=== PATIENT | female | born 1985 | race Caucasian/White ===

== ENCOUNTER 2018-08-11 19:38 | Emergency (ER) | payer OTHER ==
[2018-08-11] MEDS ORDERED: Acetaminophen 500 MG TAB ONE (19:55)
[2018-08-11] MEDS ORDERED: Acetaminophen/Codeine 30-300mg Tablet ONE ×2 (20:00→20:24)
--- NOTE | 2018-08-11 20:12 | RAD ---
3 views fourth digit right hand. HISTORY: Trauma. AP, lateral and oblique views fourth digit right hand obtained. There is an oblique moderately displaced fracture involving the midshaft middle phalanx fourth digit right hand. IMPRESSION: Right middle phalangeal fracture fourth digit.
== END 2018-08-11 20:30 | disposition home or self-care (01) ==
LOC: MADERS 19:38
DX: S62.624A Displaced fracture of middle phalanx of right ring finger, initial encounter for closed fracture (principal); V00.228A Other sled accident, initial encounter

== ENCOUNTER 2019-01-27 23:28 | Emergency (ER) | payer OTHER ==
[2019-01-27] MEDS ORDERED: methylPREDNISolone Sod Succ/PF 125 MG/2 ML VIAL ONE (23:39)
[2019-01-27] MEDS ORDERED: diphenhydrAMINE 50 MG/ML VIAL ONE (23:39)
== END 2019-01-28 00:43 | disposition home or self-care (01) ==
LOC: EEVIPCON 23:28 → MADERS 23:28
DX: T78.40XA Allergy, unspecified, initial encounter (principal); J45.909 Unspecified asthma, uncomplicated; F17.290 Nicotine dependence, other tobacco product, uncomplicated; Z79.899 Other long term (current) drug therapy
CPT/HCPCS: 96374; 96375; J1200; J2930

== ENCOUNTER 2019-05-13 17:51 | Outpatient (CLI) | payer OTHER ==
[2019-05-14 04:34] LABS: HBSAB Concentration 208.72 mIU/mL; Hep B Surf AB Reactive (NonReactive)
== END 2019-05-13 17:52 | disposition home or self-care (01) ==
LOC: MADLAB 17:51
PROVIDERS: ATTEND Internal Medicine Hematology & Oncology
DX: Z00.00 Encounter for general adult medical examination without abnormal findings (principal)
CPT/HCPCS: 86706

== ENCOUNTER 2020-03-17 08:15 | Outpatient (CLI) | payer OTHER ==
[2020-03-17 09:16] LABS: ALT (SGPT) 11 U/L (8-55); AST (SGOT) 12 U/L (5-34); Albumin 3.8 g/dL (3.5-5.0); Alkaline Phosphatase 62 U/L (40-110); Anion Gap 14 mmol/L (10-20); BUN (Urea Nitrogen) 11 mg/dL (7.0-18.7); Bilirubin, Total 0.5 mg/dL (0.2-1.2); Calc. Creatinine Clearance 0 mL/min (70-130); Calcium 8.5 mg/dL (7.8-10.44); Carbon Dioxide 20 mmol/L (22-29); Cardiac Risk 2.3 (Less than 4.5); Cholesterol 157 mg/dl (< 200 Desired); Globulin 2.9 g/dL (2.4-3.5); Glucose 93 mg/dL (70-105); HDL Cholesterol 69 mg/dL (>60 Neg Risk); LDL Cholesterol, Calculated 75 mg/dL; Potassium 3.9 mmol/L (3.5-5.1); Protein, Total 6.7 g/dL (6.0-8.3); Triglycerides 64 mg/dL (Less than 150)
[2020-03-17 09:19] LABS: #Basophils 0.1 thou/uL (0.0-0.2); #Eosinphils 0.2 thou/uL (0.0-0.7); #Lymphocytes 2.2 thou/uL (1.20-3.40); #Monocytes 0.5 thou/uL (0.11-0.59); #Neutrophils 2.7 thou/uL (1.40-6.50); %Basophils 1.6 % (0.0-1.0); %Eosinophils 4.1 % (0.0-10.0); %Lymphocytes 37.8 % (21.0-51.0); %Monocytes 9.4 % (0.0-10.0); %Neutrophils 47.1 % (42.0-75.0); Hemoglobin 11.3 g/dL (12.0-16.0); Mean Corpuscular HGB CONC 30.9 g/dL (32.0-36.0); Mean Corpuscular Hemoglobin 24.5 pg (27.0-31.0); Mean Corpuscular Volume 79.1 fL (78.0-98.0); Mean Platelet Volume 6.7 fL (7.4-10.4); Platelet Count 281 thou/uL (130-400); RBC Distribution Width 14.4 % (11.5-14.5); Red Blood Cell (RBC) Count 4.55 mill/uL (4.20-5.40); White Blood Cell (WBC) Count 5.6 thou/uL (4.8-10.8)
[2020-03-17 09:36] LABS: Thyroid Stimulating Hormone 0.7623 uIU/mL (0.35-4.94)
[2020-03-17 09:42] LABS: Anisocytosis SLIGHT = 6-15 cells (100X) (0-5/hpf)
[2020-03-17 09:43] LABS: Platelet Morphology Comment Appears Adequate
[2020-03-17 09:59] LABS: Chloride 109 mmol/L (98-107); Sodium 139 mmol/L (136-145)
[2020-03-17 17:00] LABS: HIV (1/2) Antibody/Antigen Non-Reactive (NonReactive); HIV 1/2 INDEX 0.07 S/CO (<1.00); Hep C IgG Ab Non-Reactive (NonReactive); Hep C Index 0.07 S/CO (0-0.79); Vitamin D, 25 Hydroxy 28.8 ng/ml (> 30.0)
[2020-03-17 17:14] LABS: Syphilis Antibody Nonreactive (Nonreactive); Syphilis Antibody Index 0.04 S/CO (<1.00 Non-Reactive)
== END 2020-03-17 08:16 | disposition home or self-care (01) ==
LOC: MADLAB 08:15
PROVIDERS: ATTEND Physician Assistant
DX: Z00.00 Encounter for general adult medical examination without abnormal findings (principal); Z11.3 Encounter for screening for infections with a predominantly sexual mode of transmission
CPT/HCPCS: 36415; 80053; 80061; 82306; 84443; 85025; 86780; 86803; 87389

== ENCOUNTER 2020-04-09 19:06 | Emergency (ER) | payer OTHER ==
--- NOTE | 2020-04-09 19:42 | RAD ---
Chest one view HISTORY: Dyspnea. Tachycardia. COMPARISON: 03/26/2014. FINDINGS: Cardiac silhouette and pulmonary vasculature are unremarkable. Mediastinum is midline. No confluent airspace consolidation or evidence of pneumothorax. IMPRESSION : No abnormalities are demonstrated.
[2020-04-09 20:18] LABS: Hemoglobin 11.1 g/dL (12.0-16.0); Mean Corpuscular HGB CONC 31.3 g/dL (32.0-36.0); Mean Corpuscular Hemoglobin 24.5 pg (27.0-31.0); Mean Corpuscular Volume 78.2 fL (78.0-98.0); Mean Platelet Volume 6.4 fL (7.4-10.4); Platelet Count 319 thou/uL (130-400); RBC Distribution Width 13.8 % (11.5-14.5); Red Blood Cell (RBC) Count 4.52 mill/uL (4.20-5.40); White Blood Cell (WBC) Count 8.3 thou/uL (4.8-10.8)
[2020-04-09 20:27] LABS: #Basophils 0.1 thou/uL (0.0-0.2); #Eosinphils 0.2 thou/uL (0.0-0.7); #Monocytes 0.6 thou/uL (0.11-0.59); #Neutrophils 5.8 thou/uL (1.40-6.50); %Basophils 1.3 % (0.0-1.0); %Eosinophils 2.2 % (0.0-10.0); %Lymphocytes 19.4 % (21.0-51.0); %Monocytes 7.6 % (0.0-10.0); %Neutrophils 69.5 % (42.0-75.0); Platelet Morphology Comment Appears Adequate; RBC Morphology Normal
[2020-04-09 20:36] LABS: ALT (SGPT) 13 U/L (8-55); AST (SGOT) 13 U/L (5-34); Albumin 3.8 g/dL (3.5-5.0); Alkaline Phosphatase 67 U/L (40-110); Anion Gap 13 mmol/L (10-20); BUN (Urea Nitrogen) 11 mg/dL (7.0-18.7); Bilirubin, Total 0.3 mg/dL (0.2-1.2); Calc. Creatinine Clearance 0 mL/min (70-130); Calcium 8.5 mg/dL (7.8-10.44); Carbon Dioxide 24 mmol/L (22-29); Chloride 109 mmol/L (98-107); Globulin 2.7 g/dL (2.4-3.5); Glucose 107 mg/dL (70-105); Potassium 3.9 mmol/L (3.5-5.1); Protein, Total 6.5 g/dL (6.0-8.3); Sodium 142 mmol/L (136-145)
[2020-04-09 20:45] LABS: Manual Diff?? NO
[2020-04-09 21:00] LABS: Thyroid Stimulating Hormone 0.2784 uIU/mL (0.35-4.94)
[2020-04-09 21:24] LABS: BHCG - Serum Negative (NEGATIVE); Pregs Control Background? CLEAR/WHITE (CLR/WHITE); Pregs Control Bar Appear? YES (CONTROL BAR)
[2020-04-10 16:19] LABS: Free T4 (Free Thyroxine) 1.14 ng/dL (0.70-1.48)
== END 2020-04-09 22:11 | disposition home or self-care (01) ==
LOC: MADERS 19:06
DX: R00.0 Tachycardia, unspecified (principal); R42 Dizziness and giddiness; E28.2 Polycystic ovarian syndrome; J45.909 Unspecified asthma, uncomplicated; F17.290 Nicotine dependence, other tobacco product, uncomplicated; Z79.84 Long term (current) use of oral hypoglycemic drugs; Z79.51 Long term (current) use of inhaled steroids; Z79.899 Other long term (current) drug therapy
CPT/HCPCS: 36415; 71045; 80053; 84439; 84443; 84481; 84484; 84703; 85025; 93005

== ENCOUNTER 2020-12-22 19:15 | Emergency (ER) | payer OTHER ==
[2020-12-22] MEDS ORDERED: predniSONE 20 MG TAB ONE (19:56)
[2020-12-22] MEDS ORDERED: predniSONE 10 MG TAB ONE (19:56)
[2020-12-22] MEDS ORDERED: Ipratropium Bromide 2.5 ml Neb ONE ×2 (19:58→20:51)
[2020-12-22] MEDS ORDERED: Albuterol Sulfate 2.5 mg/0.5 ml Neb ONE ×2 (19:58→20:51)
== END 2020-12-22 21:18 | disposition home or self-care (01) ==
LOC: MADERS 19:15
DX: U07.1 COVID-19 (principal); J45.901 Unspecified asthma with (acute) exacerbation; F17.200 Nicotine dependence, unspecified, uncomplicated
CPT/HCPCS: 71046; J7512; J7611

== ENCOUNTER 2022-09-01 07:44 | Emergency (ER) | payer BC ==
[2022-09-01] MEDS ORDERED: Dexamethasone 10 MG/ML VIAL ONE (08:00)
== END 2022-09-01 08:19 | disposition home or self-care (01) ==
LOC: MADERS 07:44
DX: L25.9 Unspecified contact dermatitis, unspecified cause (principal); F17.290 Nicotine dependence, other tobacco product, uncomplicated
CPT/HCPCS: 96372; 99282; J1100